=== PATIENT | male | born 1965 | race Caucasian/White ===

== ENCOUNTER 2017-04-14 07:12 | Outpatient (CLI) | payer OTHER ==
[2017-04-14 08:09] LABS: BASOPHILS % (AUTO) 0.6 % (0.0-2.0); EOSINOPHILS # (AUTO) 0.2 K/uL (0.0-0.4); EOSINOPHILS % (AUTO) 2.4 % (0.0-4.0); HEMATOCRIT 46.7 % (36-54); HEMOGLOBIN 15.1 g/dL (14.0-18.0); LYMPHOCYTES # (AUTO) 3.1 K/uL (1.0-5.5); LYMPHOCYTES % (AUTO) 41.1 % (20.5-51.5); MEAN CORPUSCULAR HEMOGLOBIN 29 pg (27-31); MEAN CORPUSCULAR HGB CONC 32 % (32-36); MEAN CORPUSCULAR VOLUME 89 fL (79.0-98.0); MONOCYTES # (AUTO) 0.4 K/uL (0.0-1.0); NEUTROPHILS # (AUTO) 3.7 K/uL (1.8-7.7); NEUTROPHILS % (AUTO) 49.9 % (40.0-70.0); PLATELET COUNT (AUTO) 199 K/uL (130-430); RED BLOOD CELL COUNT(AUTO) 5.27 MIL/uL (4.2-6.2); RED CELL DISTRIBUTION WIDTH 12.3 % (9.0-15.0); WHITE BLOOD COUNT (AUTO) 7.4 K/uL (4.8-10.8)
[2017-04-14 08:36] LABS: THYROID STIMULATING HORMONE 0.87 uIu/mL (0.34-4.82)
== END 2017-04-14 20:46 | disposition home or self-care (01) ==
LOC: SLB 07:12
PROVIDERS: ATTEND Internal Medicine
DX: E78.5 Hyperlipidemia, unspecified (principal); R73.9 Hyperglycemia, unspecified; R53.83 Other fatigue
CPT/HCPCS: 36415; 80061; 83036; 84443-TC; 85025

== ENCOUNTER 2017-08-26 10:43 | Emergency (ER) | payer OTHER ==
[~2017-08-26] VITALS: Ht 165.1 cm; Wt 80.7 kg
[2017-08-26 10:47] VITALS: BP_SYST 151
--- NOTE | 2017-08-26 10:48 | NUR ---
Patient to ER bed 02 to gown for evaluation. Side rails up.
--- NOTE | 2017-08-26 11:10 | NUR ---
Dr Wolfe at bedside examining patient
--- NOTE | 2017-08-26 11:12 | NUR ---
Pt brought by , A&Ox4,ambulatory, pt c/o LLQ abd pain which radiates to left flank, pain is intermitent, VS WNL, skin pink and warm, afebrile, respirations even and unlabored, pt denies nausea and vmiting at this time.
[2017-08-26] MEDS ORDERED: NACL 0.9% 1,000 ML IV ONE (11:15)
[2017-08-26] MEDS ORDERED: KETOROLAC TROMETHAMINE 30 MG VIAL IVP ONE (11:15)
[2017-08-26] MEDS ORDERED: fentaNYL CITRATE/PF 100 MCG/2 ML AMP IVP ONE (11:15)
[2017-08-26 11:41] LABS: BASOPHILS # (AUTO) 0.1 K/uL (0.0-0.2); BASOPHILS % (AUTO) 1.9 % (0.0-2.0); EOSINOPHILS # (AUTO) 0.1 K/uL (0.0-0.4); EOSINOPHILS % (AUTO) 1.7 % (0.0-4.0); HEMATOCRIT 47.3 % (36-54); HEMOGLOBIN 15.6 g/dL (14.0-18.0); LYMPHOCYTES # (AUTO) 2.6 K/uL (1.0-5.5); LYMPHOCYTES % (AUTO) 33.3 % (20.5-51.5); MEAN CORPUSCULAR HEMOGLOBIN 29 pg (27-31); MEAN CORPUSCULAR HGB CONC 33 % (32-36); MEAN CORPUSCULAR VOLUME 88 fL (79.0-98.0); MONOCYTES # (AUTO) 0.4 K/uL (0.0-1.0); MONOCYTES % (AUTO) 4.6 % (1.7-9.3); NEUTROPHILS # (AUTO) 4.6 K/uL (1.8-7.7); NEUTROPHILS % (AUTO) 58.5 % (40.0-70.0); PLATELET COUNT (AUTO) 249 K/uL (130-430); RED BLOOD CELL COUNT(AUTO) 5.36 MIL/uL (4.2-6.2); RED CELL DISTRIBUTION WIDTH 12.9 % (9.0-15.0); WHITE BLOOD COUNT (AUTO) 7.8 K/uL (4.8-10.8)
[2017-08-26 12:04] LABS: BILIRUBIN,URINE NEGATIVE (NEGATIVE); CLARITY/URINE CLEAR (CLEAR); COLOR,URINE YELLOW (YELLOW); GLUCOSE,URINE NEGATIVE (NEGATIVE); KETONES,URINE NEGATIVE (NEGATIVE); LEUKOCYTE ESTERASE ,URINE NEGATIVE (NEGATIVE); NITRITE, URINE NEGATIVE (NEGATIVE); PROTEIN URINE NEGATIVE (NEGATIVE); UROBILINOGEN,URINE 0.2 (0.2-1.0)
[2017-08-26 12:05] LABS: BLOOD, URINE TRACE (NEGATIVE)
[2017-08-26 12:08] LABS: BACTERIA,URINE RARE /HPF (None Seen); MUCUS,URINE 1+ /LPF (None Seen); RBC,URINE 0-3 /HPF (0-3); WBC,URINE 0-3 /HPF (0-3)
--- NOTE | 2017-08-26 12:14 | NUR ---
PT STATES HIS PAIN LEVEL IS A 5/10 DOES NOT WANT TO TAKE FENTANYL, STATES TORADOL IS HELPING WITH PAIN.
[2017-08-26 12:22] LABS: CREATININE 0.95 mg/dL (0.55-1.30); POTASSIUM 3.9 mmol/L (3.5-5.1)
[2017-08-26 12:26] LABS: ALBUMIN 3.5 g/dL (3.4-4.8); PROTHROMBIN TIME 10.4 SECS (9.5-12.5); TOTAL BILIRUBIN 0.2 mg/dL (0.0-1.0)
--- NOTE | 2017-08-26 13:04 | NUR ---
RESTING QUIETLY, NO CHANGES.
[2017-08-26 13:28] VITALS: BP_SYST 137
--- NOTE | 2017-08-26 13:29 | NUR ---
Patient given written and verbal discharge instructions and verbalizes understanding. ER MD discussed with patient the results and treatment provided. Patient in stable condition. ID arm band removed. IV catheter removed intact and dressing applied, no active bleeding. Rx of NORCO, ZOFRAN given. Patient educated on pain management and to follow up with PMD. Pain Scale 0/10. Opportunity for questions provided and answered.
== END 2017-08-26 13:28 | disposition home or self-care (01) ==
LOC: SED 10:43
DX: R10.9 Unspecified abdominal pain (principal); R11.0 Nausea; R03.0 Elevated blood-pressure reading, without diagnosis of hypertension; Z89.021 Acquired absence of right finger(s)
CPT/HCPCS: 36415; 71010; 74176; 80053; 81000; 83690; 85025; 85610; 85730; 93005; 96360; 96374; 99285; J1885; J3010; J7030

== ENCOUNTER 2017-09-09 07:40 | Outpatient (CLI) | payer OTHER ==
[2017-09-09 08:46] LABS: CALCIUM 8.8 mg/dL (8.4-11.0); POTASSIUM 3.9 mmol/L (3.5-5.1)
[2017-09-09 08:47] LABS: CREATININE 0.93 mg/dL (0.55-1.30)
[2017-09-09 08:55] LABS: TOTAL BILIRUBIN 0.5 mg/dL (0.0-1.0)
[2017-09-09 08:56] LABS: ALBUMIN 3.8 g/dL (3.4-4.8)
[2017-09-09 09:38] LABS: BILIRUBIN,URINE NEGATIVE (NEGATIVE); BLOOD, URINE 1+ (NEGATIVE); CLARITY/URINE SL HAZY (CLEAR); COLOR,URINE YELLOW (YELLOW); GLUCOSE,URINE NEGATIVE (NEGATIVE); KETONES,URINE NEGATIVE (NEGATIVE); LEUKOCYTE ESTERASE ,URINE NEGATIVE (NEGATIVE); NITRITE, URINE NEGATIVE (NEGATIVE); PROTEIN URINE NEGATIVE (NEGATIVE); UROBILINOGEN,URINE 0.2 (0.2-1.0)
[2017-09-09 09:46] LABS: BACTERIA,URINE RARE /HPF (None Seen); RBC,URINE 0-3 /HPF (0-3); WBC,URINE NONE SEEN /HPF (0-3)
== END 2017-09-09 21:49 | disposition home or self-care (01) ==
LOC: SLB 07:40
PROVIDERS: ATTEND Internal Medicine
DX: N32.89 Other specified disorders of bladder (principal); R79.89 Other specified abnormal findings of blood chemistry
CPT/HCPCS: 36415; 76770; 80053; 80061; 81000-TC; 82150-TC; 83690-TC; 87086

== ENCOUNTER 2017-11-15 12:57 | Emergency (ER) | payer OTHER ==
[~2017-11-15] VITALS: Ht 165.1 cm; Wt 75.7 kg
[2017-11-15 13:30] VITALS: BP_SYST 132
[2017-11-15] MEDS ORDERED: KETOROLAC TROMETHAMINE 60 MG/2 ML VIAL IM ONE (14:15)
[2017-11-15] MEDS ORDERED: DEXAMETHASONE SOD PHOSPHATE 10 MG/ML VIAL IM ONE (14:15)
[2017-11-15] MEDS ORDERED: AMOXICILLIN/CLAVULANATE POTASSIUM 875 MG TABLET PO ONE (14:15)
[2017-11-15 14:40] VITALS: BP_SYST 132
== END 2017-11-15 14:40 | disposition home or self-care (01) ==
LOC: SED 12:57
DX: H66.93 Otitis media, unspecified, bilateral (principal); J06.9 Acute upper respiratory infection, unspecified; R03.0 Elevated blood-pressure reading, without diagnosis of hypertension; Z16.30 Resistance to unspecified antimicrobial drugs
CPT/HCPCS: 71010; 96372; 99284; J1100; J1885

== ENCOUNTER 2017-11-28 14:27 | Emergency (ER) | payer OTHER ==
[~2017-11-28] VITALS: Ht 162.6 cm; Wt 75.7 kg
--- NOTE | 2017-11-28 14:27 | NUR ---
Patient triaged and placed in waiting room. VSS and patient appears in no acute distress at this time. Accompanied by SELF, awaiting available bed, and MD notified of need for MSE.
[2017-11-28 14:30] VITALS: BP_SYST 149
--- NOTE | 2017-11-28 16:49 | NUR ---
BROUGHT BACK TO [facility] AND REPORT GIVEN TO ZAY
--- NOTE | 2017-11-28 16:49 | NUR ---
Note undone in [facility] - 11/28/17 at 1651 by RELL BROUGHT BACK TO BED #8 AND REPORT GIVEN TO MIROSLAVA Addendum: 11/28/17 at 1650 by KOURTNEYC Amendment undone in [facility] - 11/28/17 at 1651 by SORAYALLC BED #4
--- NOTE | 2017-11-28 16:55 | NUR ---
Pt complains of cough and congestion since 11/09/17. Pt states he was in [place] when he started developed the cough, sore throat, and ear infection. He saw a physician in [place] and was prescribed antibiotics. Pt states he finished the antibiotics 3 days ago but the cough and congestion is still present. Pt states his throat is only a little sore, no earache. Pt denies N/V or fever. Pt ambulatory and AAO x 4. No other injuries/complaints per patient or noted.
--- NOTE | 2017-11-28 17:12 | NUR ---
ER Dr. Case at bedside examining patient.
[2017-11-28 18:34] VITALS: BP_SYST 132
--- NOTE | 2017-11-28 18:34 | NUR ---
Patient given written and verbal discharge instructions and verbalizes understanding. ER MD discussed with patient the results and treatment provided. Patient in stable condition. ID arm band removed. Rx of Guaifenesin and Azithromycin given. Patient educated on pain management and to follow up with PMD. Pain Scale 0. Opportunity for questions provided and answered.
== END 2017-11-28 18:34 | disposition home or self-care (01) ==
LOC: SED 14:27
DX: J20.9 Acute bronchitis, unspecified (principal)
CPT/HCPCS: 36415; 71020-TC; 86710; 99285

== ENCOUNTER 2018-04-01 08:42 | Emergency (ER) | payer OTHER ==
[~2018-04-01] VITALS: Ht 165.1 cm; Wt 77.1 kg
[2018-04-01 08:44] VITALS: BP_SYST 151
[2018-04-01 09:14] VITALS: BP_SYST 145
== END 2018-04-01 09:10 | disposition home or self-care (01) ==
LOC: SED 08:42
DX: J06.9 Acute upper respiratory infection, unspecified (principal); R50.9 Fever, unspecified; R03.0 Elevated blood-pressure reading, without diagnosis of hypertension; K21.9 Gastro-esophageal reflux disease without esophagitis
CPT/HCPCS: 99283

== ENCOUNTER 2018-07-25 17:39 | Emergency (ER) | payer OTHER ==
[~2018-07-25] VITALS: Ht 165.1 cm; Wt 74.8 kg
[2018-07-25 17:53] VITALS: BP_SYST 143
[2018-07-25 18:35] VITALS: BP_SYST 142
== END 2018-07-25 18:35 | disposition home or self-care (01) ==
LOC: SED 17:39
DX: S63.613A Unspecified sprain of left middle finger, initial encounter (principal); K21.9 Gastro-esophageal reflux disease without esophagitis; R03.0 Elevated blood-pressure reading, without diagnosis of hypertension; E78.00 Pure hypercholesterolemia, unspecified; X50.0XXA Overexertion from strenuous movement or load, initial encounter; Y93.89 Activity, other specified; Y92.89 Other specified places as the place of occurrence of the external cause; Y99.8 Other external cause status
CPT/HCPCS: 73140-TC; 99284

== ENCOUNTER 2018-12-01 06:34 | Emergency (ER) | payer OTHER ==
[~2018-12-01] VITALS: Ht 165.1 cm; Wt 74.8 kg
--- NOTE | 2018-12-01 06:43 | NUR ---
Patient to ER bed 8 to gown for evaluation. Side rails up.
[2018-12-01 06:48] VITALS: BP_SYST 150
--- NOTE | 2018-12-01 06:50 | NUR ---
Pt complains of cough since November 25. Pt states he has been feeling hot and cold but doesn't know if had a fever. Pt states he had one day of diarrhea, with nausea/vomiting. Per patient, he took some Robitussin last night with no relief. No other injuries/complaints per patinet or noted.
--- NOTE | 2018-12-01 06:57 | NUR ---
ER Dr. Alonso at bedside examining patient.
[2018-12-01] MEDS ORDERED: KETOROLAC TROMETHAMINE 60 MG/2 ML VIAL IM ONE (07:00)
--- NOTE | 2018-12-01 07:17 | NUR ---
Medication was given, pt tolerated well. No adverse reaction, will continue to monitor.
[2018-12-01 07:39] VITALS: BP_SYST 150
--- NOTE | 2018-12-01 07:44 | NUR ---
Patient given written and verbal discharge instructions and verbalizes understanding. ER MD discussed with patient the results and treatment provided. Patient in stable condition. ID arm band removed. Rx of Prednisone and Motrin given. Patient educated on pain management and to follow up with PMD. Pain Scale 3/10 bodyaches. Opportunity for questions provided and answered. Medication side effect fact sheet provided.
== END 2018-12-01 07:44 | disposition home or self-care (01) ==
LOC: SED 06:34
DX: J11.1 Influenza due to unidentified influenza virus with other respiratory manifestations (principal); R05 Cough; R03.0 Elevated blood-pressure reading, without diagnosis of hypertension; K21.9 Gastro-esophageal reflux disease without esophagitis; E78.00 Pure hypercholesterolemia, unspecified
CPT/HCPCS: 96372; 99283; J1885

== ENCOUNTER 2019-06-19 16:27 | Emergency (ER) | payer OTHER ==
[~2019-06-19] VITALS: Ht 165.1 cm; Wt 73.9 kg
[2019-06-19 16:58] VITALS: BP_SYST 141
[2019-06-19 18:17] LABS: BASOPHILS # (AUTO) 0.1 K/uL (0.0-0.2); BASOPHILS % (AUTO) 0.7 % (0.0-2.0); EOSINOPHILS # (AUTO) 0.1 K/uL (0.0-0.4); EOSINOPHILS % (AUTO) 1.1 % (0.0-4.0); HEMATOCRIT 42.3 % (36-54); HEMOGLOBIN 14.2 g/dL (14.0-18.0); LYMPHOCYTES # (AUTO) 3.8 K/uL (1.0-5.5); LYMPHOCYTES % (AUTO) 49.3 % (20.5-51.5); MEAN CORPUSCULAR HEMOGLOBIN 30 pg (27-31); MEAN CORPUSCULAR HGB CONC 34 % (32-36); MEAN CORPUSCULAR VOLUME 90 fL (79.0-98.0); MONOCYTES # (AUTO) 0.5 K/uL (0.0-1.0); NEUTROPHILS # (AUTO) 3.2 K/uL (1.8-7.7); NEUTROPHILS % (AUTO) 41.9 % (40.0-70.0); PLATELET COUNT (AUTO) 192 K/uL (130-430); RED BLOOD CELL COUNT(AUTO) 4.69 MIL/uL (4.2-6.2); RED CELL DISTRIBUTION WIDTH 13.6 % (9.0-15.0); WHITE BLOOD COUNT (AUTO) 7.6 K/uL (4.8-10.8)
[2019-06-19 18:28] LABS: ANION GAP 10 (5-15); CALCIUM 8.7 mg/dL (8.4-11.0); CHLORIDE 105 mmol/L (98-107); CREATININE 0.97 mg/dL (0.55-1.30); GLUCOSE 97 mg/dL (70-99); POTASSIUM 4.2 mmol/L (3.5-5.1); SODIUM SERUM 142 mmol/L (136-145); UREA NITROGEN, BLOOD 19 mg/dL (8-21)
[2019-06-19 18:29] LABS: GFR AFRICAN AMERICAN 105 mL/min (>90)
[2019-06-19 18:36] LABS: ALANINE AMINOTRANSFERASE 28 U/L (12-78); ALBUMIN 3.6 g/dL (3.4-4.8); ASPARTATE AMINOTRANSFERASE 14 U/L (10-37)
[2019-06-19 19:06] LABS: TOTAL BILIRUBIN 0.3 mg/dL (0.0-1.0)
[2019-06-19 19:36] VITALS: BP_SYST 145
== END 2019-06-19 19:36 | disposition home or self-care (01) ==
LOC: SED 16:27
DX: I10 Essential (primary) hypertension (principal); K21.9 Gastro-esophageal reflux disease without esophagitis; E78.00 Pure hypercholesterolemia, unspecified
CPT/HCPCS: 36415; 71045; 80053; 84484; 85025; 93005; 99284

== ENCOUNTER 2019-06-25 14:48 | Emergency (ER) | payer OTHER ==
[~2019-06-25] VITALS: Ht 165.1 cm; Wt 72.6 kg
[2019-06-25 14:48] VITALS: BP_SYST 125
[2019-06-25 17:08] VITALS: BP_SYST 125
== END 2019-06-25 17:08 | disposition home or self-care (01) ==
LOC: SED 14:48
DX: R10.84 Generalized abdominal pain (principal); R19.7 Diarrhea, unspecified; E78.00 Pure hypercholesterolemia, unspecified
CPT/HCPCS: 99283